=== PATIENT | female | born 1990 | race Caucasian/White ===

== ENCOUNTER 2016-08-10 20:26 | Emergency (ER) | payer OTHER ==
--- NOTE | 2016-08-10 23:19 | ED NURSING NOTES ---
Clinical Report - Nurses [facility] [address] [place] [address] 08/10/2016 20:28 Patient: ADRIA MCLEAN TRIAGE Triage time 21:57. Acuity: LEVEL 4. Chief Complaint: RIGHT UPPER EXTREMITY PAIN. --22:00 ReneeB R.N. 22:00 08/10/16. BP: 110/73. HR: 78. RR: 18. O2 saturation: 99%. Temp: 98.4 F. Pain level now: 05/29. --22:02 Celia R.N. Weight: 120.2 kg. Height/Length: 69 inches. BMI: 39.2. --23:37 TonfelixB, R.N. Medications Control Pills. --22:03 Celia R.N. Allergies No Known Drug Allergy. --22:02 Celia R.N. History Arrived by private vehicle. Historian: patient. Accompanied by family. ( pt was moving a freezer and got thumb caught and has cut). Injury occurred. This occurred just prior to arrival. Treatment VERIFICATION SPECIALIST: None. PAST MEDICAL HX: Tetanus status: up-to-date. Immunizations: up-to-date. SOCIAL HX: Never smoker. No alcohol use or drug use. No infectious disease exposure. SELF HARM ASSESSMENT: A self harm assessment was performed. The patient answered "no" to the question "Have you recently felt down, depressed, or hopeless?", "Have you noticed less interest or pleasure in doing things?", "Do you have thoughts of harming or killing yourself?", "Are you here because you tried to hurt yourself?", "Have you ever tried to hurt yourself before today?", "Have you recently had thoughts about harming or killing others?" and "Do you have any dangerous items in your possession?". FALL RISK ASSESSMENT: Fall risk assessment completed. No fall risk identified. NUTRITIONAL RISK ASSESSMENT: The nutritional risk assessment revealed no deficiencies. FUNCTIONAL ASSESSMENT: Functional assessment: no impairments noted. LEARNING NEEDS ASSESSMENT: The learning needs assessment revealed no barriers. SKIN INTEGRITY ASSESSMENT: Skin integrity risk assessment completed. No skin integrity risk identified. --22:00 Doni Yang PROBLEMS: no known problems. ADDITIONAL SURGERIES: Cholecystectomy. --22:03 Doni Yang Interventions ID band on patient. To room. --22:00 Doni Yang PHYSICAL ASSESSMENT Ambulatory to room. GENERAL / NEURO / PSYCH: Oriented X 4. Alert. Appears in no acute distress. EXTREMITIES: Extremities exhibit normal ROM. Neuro-vascular status intact to the extremity. Skin is non-tender on the extremities. Right thumb: tenderness and subcutaneous laceration. SKIN: Skin intact. Skin is warm and dry. --22:04 Doni Yang NURSING PROGRESS NOTES Patient identifiers checked. Call light placed in reach. Side rails up x 1. Bed placed in lowest position. Brakes of bed on. --22:04 Doni Yang ( hand soaking at this time). --22:04 Doni Yang ( 2320: Non adhesive dressing applied to R thumb). --23:33 Nancy Glover. DISPOSITION / DISCHARGE Departure time: 23:37. Condition at departure: improved. No learning barriers present. Discharge instructions provided and reviewed with the patient. Patient verbalized understanding. Written instructions provided in Malay. No warning instructions, medication instructions, treatment instructions, referrals given to the patient or diet instructions. No activity restrictions or follow up contact number given. No work note given. The patient was discharged by the physician certified physical therapist assistant. She was discharged home and accompanied by spouse. She left the Emergency Department ambulatory and via private vehicle. Spouse driving. FALL RISK ASSESSMENT: Fall risk assessment completed. No fall risk identified. --23:37 Doni Yang 23:36 08/10/16. BP: deferred. HR: deferred. RR: deferred. O2 saturation: deferred. Temp: deferred. Pain level now: 0/10. --23:37 oDni Yang Locked/Released at 08/10/2016 23:37 by Doni Yang
--- NOTE | 2016-08-10 23:19 | ED CLINICAL REPORT ---
Clinical Report - Physicians/Mid Levels [facility] [address] [place] [address] 08/10/2016 20:28 Patient: ADRIA MCLEAN Time Seen: 2229Aug 10 2016. Arrived- By private vehicle. Historian- patient. HISTORY OF PRESENT ILLNESS Chief Complaint: Injury to the right thumb. The injury happened just prior to arrival. The patient sustained a laceration. Occurred at home. ( patient sustained a laceration from a sharp object on moving objects just prior to arrival. Denies prior injury to the area. Patient denies any difficulty with movement or any loss of sensation.). REVIEW OF SYSTEMS The patient sustained a laceration. No tingling. All systems otherwise negative, except as recorded above. PAST HISTORY The patient's dominant hand is the right. She has not had a prior injury to the same area. Tetanus immunization status is up-to-date. SOCIAL HISTORY Never smoker. No alcohol use or drug use. ADDITIONAL NOTES The nursing notes have been reviewed. PHYSICAL EXAM Vital Signs: 08/10/2016 22:00 BP: 110/73. HR: 78. RR: 18. O2 saturation: 99%. Temp: 98.4 F. Pain level now: 2/10. Appearance: Alert. Head: Head atraumatic. ENT: Ears normal. Neck: Normal inspection. Neck supple. CVS: Normal heart rate and rhythm. Heart sounds normal. Respiratory: No respiratory distress. Breath sounds normal. Extremities: Right thumb: (Still surface jagged laceration that is well approximated with no bleeding. Full range of motion distally.). Neuro, Vascular and Tendons: Vascular status intact. No pulse deficit present. Motor intact. No functional tendon deficit. Neuro: Oriented X 3. PROGRESS AND PROCEDURES PROCEDURES (Procedure: dermabond/ steri strps applied to R. Thumb). Course of Care: Patient sustained a laceration that is partial-thickness non-gaping with no bleeding, Dermabond and Steri-Strips applied. Patient with tenderness medication up today. No signs of secondary debility with range of motion, tendon injury. Patient stable. Patient is stable. Symptoms better. Patient/family counseled. Disposition: Discharged. Condition: good. CLINICAL IMPRESSION Single deep laceration to the right thumb. INSTRUCTIONS (no water to area for 48 hours steri strips will fall off). Follow-up: Follow up with your doctor as needed. Understanding of the discharge instructions verbalized by patient. (Electronically signed by Ladonna Woodruff P.A.-C 08/10/2016 23:30)
--- NOTE | 2016-08-10 23:19 | ED NURSING NOTES ---
Clinical Report - Nurses [facility] [address] [place] [address] 08/10/2016 20:28 Patient: ADRIA MCLEAN TRIAGE Triage time 21:57. Acuity: LEVEL 4. Chief Complaint: RIGHT UPPER EXTREMITY PAIN. --22:00 ReneeB R.N. 22:00 08/10/16. BP: 110/73. HR: 78. RR: 18. O2 saturation: 99%. Temp: 98.4 F. Pain level now: 05/29. --22:02 Celia R.N. Weight: 120.2 kg. Height/Length: 69 inches. BMI: 39.2. --23:37 TonfelixB, R.N. Medications Control Pills. --22:03 Celia R.N. Allergies No Known Drug Allergy. --22:02 Celia R.N. History Arrived by private vehicle. Historian: patient. Accompanied by family. ( pt was moving a freezer and got thumb caught and has cut). Injury occurred. This occurred just prior to arrival. Treatment PROCESSING MANAGER: None. PAST MEDICAL HX: Tetanus status: up-to-date. Immunizations: up-to-date. SOCIAL HX: Never smoker. No alcohol use or drug use. No infectious disease exposure. SELF HARM ASSESSMENT: A self harm assessment was performed. The patient answered "no" to the question "Have you recently felt down, depressed, or hopeless?", "Have you noticed less interest or pleasure in doing things?", "Do you have thoughts of harming or killing yourself?", "Are you here because you tried to hurt yourself?", "Have you ever tried to hurt yourself before today?", "Have you recently had thoughts about harming or killing others?" and "Do you have any dangerous items in your possession?". FALL RISK ASSESSMENT: Fall risk assessment completed. No fall risk identified. NUTRITIONAL RISK ASSESSMENT: The nutritional risk assessment revealed no deficiencies. FUNCTIONAL ASSESSMENT: Functional assessment: no impairments noted. LEARNING NEEDS ASSESSMENT: The learning needs assessment revealed no barriers. SKIN INTEGRITY ASSESSMENT: Skin integrity risk assessment completed. No skin integrity risk identified. --22:00 Doni Yang PROBLEMS: no known problems. ADDITIONAL SURGERIES: Cholecystectomy. --22:03 Doni Yang Interventions ID band on patient. To room. --22:00 Doni Yang PHYSICAL ASSESSMENT Ambulatory to room. GENERAL / NEURO / PSYCH: Oriented X 4. Alert. Appears in no acute distress. EXTREMITIES: Extremities exhibit normal ROM. Neuro-vascular status intact to the extremity. Skin is non-tender on the extremities. Right thumb: tenderness and subcutaneous laceration. SKIN: Skin intact. Skin is warm and dry. --22:04 Doni Yang NURSING PROGRESS NOTES Patient identifiers checked. Call light placed in reach. Side rails up x 1. Bed placed in lowest position. Brakes of bed on. --22:04 Doni Yang ( hand soaking at this time). --22:04 Doni Yang ( 2320: Non adhesive dressing applied to R thumb). --23:33 Nancy Glover. DISPOSITION / DISCHARGE Departure time: 23:37. Condition at departure: improved. No learning barriers present. Discharge instructions provided and reviewed with the patient. Patient verbalized understanding. Written instructions provided in Maori. No warning instructions, medication instructions, treatment instructions, referrals given to the patient or diet instructions. No activity restrictions or follow up contact number given. No work note given. The patient was discharged by the physician assistant librarian. She was discharged home and accompanied by spouse. She left the Emergency Department ambulatory and via private vehicle. Spouse driving. FALL RISK ASSESSMENT: Fall risk assessment completed. No fall risk identified. --23:37 Doni Yang 23:36 08/10/16. BP: deferred. HR: deferred. RR: deferred. O2 saturation: deferred. Temp: deferred. Pain level now: 0/10. --23:37 Doni Yang Locked/Released at 08/10/2016 23:37 by Doni Yang
--- NOTE | 2016-08-10 23:19 | ED CLINICAL REPORT ---
Clinical Report - Physicians/Mid Levels [facility] [address] [place] [address] 08/10/2016 20:28 Patient: ADRIA MCLEAN Time Seen: 2229Aug 10 2016. Arrived- By private vehicle. Historian- patient. HISTORY OF PRESENT ILLNESS Chief Complaint: Injury to the right thumb. The injury happened just prior to arrival. The patient sustained a laceration. Occurred at home. ( patient sustained a laceration from a sharp object on moving objects just prior to arrival. Denies prior injury to the area. Patient denies any difficulty with movement or any loss of sensation.). REVIEW OF SYSTEMS The patient sustained a laceration. No tingling. All systems otherwise negative, except as recorded above. PAST HISTORY The patient's dominant hand is the right. She has not had a prior injury to the same area. Tetanus immunization status is up-to-date. SOCIAL HISTORY Never smoker. No alcohol use or drug use. ADDITIONAL NOTES The nursing notes have been reviewed. PHYSICAL EXAM Vital Signs: 08/10/2016 22:00 BP: 110/73. HR: 78. RR: 18. O2 saturation: 99%. Temp: 98.4 F. Pain level now: 2/10. Appearance: Alert. Head: Head atraumatic. ENT: Ears normal. Neck: Normal inspection. Neck supple. CVS: Normal heart rate and rhythm. Heart sounds normal. Respiratory: No respiratory distress. Breath sounds normal. Extremities: Right thumb: (Still surface jagged laceration that is well approximated with no bleeding. Full range of motion distally.). Neuro, Vascular and Tendons: Vascular status intact. No pulse deficit present. Motor intact. No functional tendon deficit. Neuro: Oriented X 3. PROGRESS AND PROCEDURES PROCEDURES (Procedure: dermabond/ steri strps applied to R. Thumb). Course of Care: Patient sustained a laceration that is partial-thickness non-gaping with no bleeding, Dermabond and Steri-Strips applied. Patient with tenderness medication up today. No signs of secondary debility with range of motion, tendon injury. Patient stable. Patient is stable. Symptoms better. Patient/family counseled. Disposition: Discharged. Condition: good. CLINICAL IMPRESSION Single deep laceration to the right thumb. INSTRUCTIONS (no water to area for 48 hours steri strips will fall off). Follow-up: Follow up with your doctor as needed. Understanding of the discharge instructions verbalized by patient. (Electronically signed by Ladonna Woodruff P.A.-C 08/10/2016 23:30)
--- NOTE | 2016-08-10 23:37 | ED DISCHARGE INSTRUCTIONS ---
Patient: ADRIA MCLEAN General Instructions [facility] VisitID: [id number] [place] [address] 26y, F Registration Date/Time: 08/10/2016 Single deep laceration to the right thumb. INSTRUCTIONS (no water to area for 48 hours steri strips will fall off). Follow-up: Follow up with your doctor as needed. Understanding of the discharge instructions verbalized by patient. ADDITIONAL INFORMATION Laceration(Skin Glue) A laceration is a cut through the skin. You have a laceration that has been closed with a type of skin glue. Home Care Medications: Acetaminophen (Tylenol) or ibuprofen (Motrin, Advil) may be taken for pain, unless another pain medicine was prescribed. NOTE: If you have chronic liver or kidney disease or ever had a stomach ulcer or GI bleeding, talk with your doctor before using these medications. General Care: Keep the wound clean and dry. You may shower or bathe as usual, but do not use soaps, lotions, or ointments on the wound area. Do not scrub the wound. After bathing, pat the wound dry with a soft towel. If a bandage was applied and it becomes wet or dirty, replace it. Otherwise, change the bandage every 24 hours. Do not scratch, rub, or pick at the film. Do not place tape directly over the film. Do not apply liquids (such as peroxide), ointments, or creams to the wound while the film is in place. Most skin wounds heal without problems. However, an infection sometimes occurs despite proper treatment. Therefore, watch for the signs of infection listed below. Follow Up as directed by the doctor or our staff. The skin glue film will fall off naturally in 5 to 10 days. Get Prompt Medical Attention if any of the following occur: Signs of infection: Fever of 100.4F (38C) or higher, or as directed by your healthcare provider Increasing pain in the wound Increasing redness or swelling Pus coming from the wound Wound bleeds more than a small amount or bleeding doesnt stop Wound edges come apart You feel numbness or weakness in the wound area that doesnt go away You have been given the following additional information: Laceration, Extremity (Skin Glue) (Electronically signed by KorLadonna frausto P.A.-C 08/10/2016 23:30)
--- NOTE | 2016-08-10 23:37 | ED DISCHARGE INSTRUCTIONS ---
Patient: ADRIA MCLEAN General Instructions [facility] VisitID: [id number] [place] [address] 26y, F Registration Date/Time: 08/10/2016 Single deep laceration to the right thumb. INSTRUCTIONS (no water to area for 48 hours steri strips will fall off). Follow-up: Follow up with your doctor as needed. Understanding of the discharge instructions verbalized by patient. ADDITIONAL INFORMATION Laceration(Skin Glue) A laceration is a cut through the skin. You have a laceration that has been closed with a type of skin glue. Home Care Medications: Acetaminophen (Tylenol) or ibuprofen (Motrin, Advil) may be taken for pain, unless another pain medicine was prescribed. NOTE: If you have chronic liver or kidney disease or ever had a stomach ulcer or GI bleeding, talk with your doctor before using these medications. General Care: Keep the wound clean and dry. You may shower or bathe as usual, but do not use soaps, lotions, or ointments on the wound area. Do not scrub the wound. After bathing, pat the wound dry with a soft towel. If a bandage was applied and it becomes wet or dirty, replace it. Otherwise, change the bandage every 24 hours. Do not scratch, rub, or pick at the film. Do not place tape directly over the film. Do not apply liquids (such as peroxide), ointments, or creams to the wound while the film is in place. Most skin wounds heal without problems. However, an infection sometimes occurs despite proper treatment. Therefore, watch for the signs of infection listed below. Follow Up as directed by the doctor or our staff. The skin glue film will fall off naturally in 5 to 10 days. Get Prompt Medical Attention if any of the following occur: Signs of infection: Fever of 100.4F (38C) or higher, or as directed by your healthcare provider Increasing pain in the wound Increasing redness or swelling Pus coming from the wound Wound bleeds more than a small amount or bleeding doesnt stop Wound edges come apart You feel numbness or weakness in the wound area that doesnt go away You have been given the following additional information: Laceration, Extremity (Skin Glue) (Electronically signed by KorLadonna frausto P.A.-C 08/10/2016 23:30)
--- NOTE | 2016-08-10 23:37 | ED MAR SUMMARY ---
..... Medication Administration Record [facility] [address] [place], [place] [id number] Patient: ADRIA MCLEAN Visit ID: [id number] 26y, F Weight: 120.2 kg Height/Length: 69 in BMI: 39.2 ALLERGIES: No Known Drug Allergy
--- NOTE | 2016-08-10 23:37 | ED MED RECONCILIATION SUMMARY ---
Patient: ADRIA MCLEAN Medication Reconciliation Report [facility] VisitID: [id number] [address] [place] [address] 26y, F Registration Date/Time: 08/10/2016 Weight: 120.2 kg Height/Length: 69 in. BMI: 39.2 ALLERGIES: No Known Drug Allergy The patient's Home Medications are listed below: THE FOLLOWING MEDICATIONS NEED TO BE RECONCILED: Control Pills The source(s) of the original Home Medication information: Not obtained. The following Medications were given to the patient in the Emergency Department: None. The following Medications were prescribed to the patient: None.
--- NOTE | 2016-08-10 23:37 | ED MAR SUMMARY ---
..... Medication Administration Record [address] [place], [place] [id number] Patient: ADRIA MCLEAN Visit ID: [id number] 26y, F Weight: 120.2 kg Height/Length: 69 in BMI: 39.2 ALLERGIES: No Known Drug Allergy
--- NOTE | 2016-08-10 23:37 | ED MED RECONCILIATION SUMMARY ---
Patient: ADRIA MCLEAN Medication Reconciliation Report [facility] VisitID: [id number] [address] [place] [address] 26y, F Registration Date/Time: 08/10/2016 Weight: 120.2 kg Height/Length: 69 in. BMI: 39.2 ALLERGIES: No Known Drug Allergy The patient's Home Medications are listed below: THE FOLLOWING MEDICATIONS NEED TO BE RECONCILED: Control Pills The source(s) of the original Home Medication information: Not obtained. The following Medications were given to the patient in the Emergency Department: None. The following Medications were prescribed to the patient: None.
== END 2016-08-10 23:37 | disposition home or self-care (01) ==
LOC: ED SRH 20:26
DX: S61.011A Laceration without foreign body of right thumb without damage to nail, initial encounter (principal); W26.8XXA Contact with other sharp object(s), not elsewhere classified, initial encounter; Y93.89 Activity, other specified; Y92.009 Unspecified place in unspecified non-institutional (private) residence as the place of occurrence of the external cause; Y99.9 Unspecified external cause status